=== PATIENT | male | born 1970 | race Caucasian/White ===

== ENCOUNTER 2023-09-26 09:33 | Outpatient (CLI) | payer OTHER, SELFPAY ==
--- NOTE | 2023-09-26 09:50 | MM_ITS ---
WS: [id number] DIAGNOSTIC BILATERAL DIGITAL BREAST TOMOSYNTHESIS MAMMOGRAPHY WITH CAD LEFT breast ultrasound, limited. HISTORY: BREAST TENDERNESS IN MALE/FAMILY HX OF BREAST CANCER COMPARISON: None available. TECHNIQUE: Bilateral craniocaudad, mediolateral oblique, and mediolateral views are submitted with to mosynthesis and SM. Spot compression LEFT CC and MLO. Computer aided detection utilized. Breast composition: The breasts are almost entirely fatty. There is a very subtle area of fibroglandu lar thickening in the anterior LEFT breast, subareolar. This has typical appearance for gynecomastia. No nipple retraction and no mass. LEFT breast ultrasound, limited. There is a new area of very minimal dendritic extension posterior to the LEFT nipple consistent with gynecomastia. No increased vascularity. MM/[place] [id number] IMPRESSION: BI-RADS: 2-Benign FOLLOW UP: See Report Palpable area LEFT breast corresponds to mild gynecomastia. No further imaging follow-up necessary.
== END 2023-09-26 09:34 | disposition home or self-care (01) ==
LOC: RAD 09:34
PROVIDERS: PCP Physician Assistant Medical; Visit Provider Nurse Practitioner Family
DX: N64.4 Mastodynia (principal); Z80.3 Family history of malignant neoplasm of breast; R92.313 Mammographic fatty tissue density, bilateral breasts; R92.322 Mammographic fibroglandular density, left breast
CPT/HCPCS: 76642; 77062; G0279

== ENCOUNTER → 2024-05-23 09:38 | Outpatient (BNVA) | payer OTHER, SELFPAY | PROVIDERS: PCP Physician Assistant Medical; Visit Provider Nurse Practitioner Family | DX: I10 Essential (primary) hypertension (principal); R53.83 Other fatigue; F41.9 Anxiety disorder, unspecified; E78.5 Hyperlipidemia, unspecified | CPT/HCPCS: 80053; 80061; 84439; 84443; 85025 ==

== ENCOUNTER → 2024-05-31 10:40 | Outpatient (BNVA) | payer OTHER, SELFPAY | PROVIDERS: PCP Nurse Practitioner Family; Visit Provider Nurse Practitioner Family | DX: R73.09 Other abnormal glucose (principal) | CPT/HCPCS: 83036 ==

== ENCOUNTER 2024-06-14 09:20 | Outpatient (CLI) | payer OTHER, SELFPAY ==
--- NOTE | 2024-06-14 09:45 | US_ITS ---
WS: [id number] THYROID ULTRASOUND HISTORY: Elevated TSH. COMPARISON: None available. Right lobe: 1.1 cm x 1.3 cm x 2.7 cm (w x ap x l). Volume: 2.0 cm3. Small caliber thyroid. No nodule or increased vascularity. Left lobe: 1.4 cm x 1.3 cm x 3.6 cm (w x ap x l). Volume: 3.1 cm3. Small caliber thyroid. No nodule or increased vascularity. There is a tiny colloid cyst within the inferior lateral gland. Isthmus: 0.3 cm. US/US thyroid [id number] IMPRESSION: 1. TI-RADS 2; no suspicious nodule or FNA recommended. No imaging follow-up ne cessary.
== END 2024-06-14 09:21 | disposition home or self-care (01) ==
PROVIDERS: PCP Nurse Practitioner Family; Visit Provider Nurse Practitioner Family
DX: R79.89 Other specified abnormal findings of blood chemistry (principal)
CPT/HCPCS: 76536

== ENCOUNTER → 2024-07-05 11:21 | Outpatient (BNVA) | payer OTHER, SELFPAY | PROVIDERS: PCP Nurse Practitioner Family; Visit Provider Nurse Practitioner Family | DX: E78.2 Mixed hyperlipidemia (principal); E03.9 Hypothyroidism, unspecified | CPT/HCPCS: 84478 ==

== ENCOUNTER → 2024-07-11 09:49 | Outpatient (BNVA) | payer OTHER, SELFPAY | PROVIDERS: PCP Nurse Practitioner Family; Visit Provider Nurse Practitioner Family | DX: E03.9 Hypothyroidism, unspecified (principal) | CPT/HCPCS: 84443 ==

== ENCOUNTER → 2024-08-20 08:06 | Outpatient (BNVA) | payer OTHER, SELFPAY | PROVIDERS: PCP Nurse Practitioner Family; Visit Provider Nurse Practitioner Family | DX: E03.9 Hypothyroidism, unspecified (principal) | CPT/HCPCS: 84443 ==

== ENCOUNTER → 2024-11-22 08:55 | Outpatient (BNVA) | payer OTHER, SELFPAY | PROVIDERS: PCP Nurse Practitioner Family; Visit Provider Nurse Practitioner Family | DX: I10 Essential (primary) hypertension (principal); E03.9 Hypothyroidism, unspecified; E78.2 Mixed hyperlipidemia | CPT/HCPCS: 80053; 80061; 83721; 84443 ==